=== PATIENT | male | born 1935 | race Caucasian/White ===

== ENCOUNTER → 2017-02-26 | Outpatient (CLI) | payer MEDICARE, BC ==
[~2017-02-26] MED LIST: ASPIRIN325 MG PO; FIORINAL1 TAB PO; PROSCAR5 MG PO; TYLENOL WITH C1 EACH PO; TYLENOL325 MG PO
[2017-02-26 09:50] LABS: CREATININE 0.6 mg/dL (0.6-1.3)
== END | disposition disaster alternative care site (69) ==
LOC: GLAB 08:45 → GRAD 11:00
PROVIDERS: Nurse Practitioner
DX: Z08 Encounter for follow-up examination after completed treatment for malignant neoplasm (principal); K57.30 Diverticulosis of large intestine without perforation or abscess without bleeding; N28.1 Cyst of kidney, acquired; Z90.6 Acquired absence of other parts of urinary tract
CPT/HCPCS: Q9967